=== PATIENT | male | born 2000 | race Caucasian/White ===

== ENCOUNTER 2019-01-20 03:50 | Emergency (ER) | payer OTHER ==
[2019-01-20] MEDS: CEPHALEXIN 500 MG CAP PO ×2 (04:10→05:49)
[2019-01-20] MEDS: DIPHTH/TET/ACEL PERTUSS (ADULT) 0.5 ML VIAL IM* (04:10)
[2019-01-20] MEDS: TETRACAINE 0.5% 4 ML OPH LEFT EYE (04:17)
[2019-01-20] MEDS: IBUPROFEN 600 MG TAB PO (05:45)
== END 2019-01-20 06:16 | disposition home or self-care (01) ==
LOC: E/R 03:50
DX: S05.12XA Contusion of eyeball and orbital tissues, left eye, initial encounter (principal); S89.91XA Unspecified injury of right lower leg, initial encounter; S89.92XA Unspecified injury of left lower leg, initial encounter; S61.412A Laceration without foreign body of left hand, initial encounter; L08.9 Local infection of the skin and subcutaneous tissue, unspecified; S69.91XA Unspecified injury of right wrist, hand and finger(s), initial encounter; Y04.0XXA Assault by unarmed brawl or fight, initial encounter; Z23 Encounter for immunization
CPT/HCPCS: 70486; 73140; 73560; 73562; 76536; 90471; 90715; 99284-25